=== PATIENT | female | born 1955 | race Caucasian/White ===

== ENCOUNTER 2018-03-08 13:37 | Emergency (ER) | payer OTHER ==
[~2018-03-08] VITALS: Ht 162.6 cm; Wt 73.0 kg
[2018-03-08] MEDS ORDERED: CYCLOBENZAPRINE 10MG TABLET PO ONE (15:00)
[2018-03-08] MEDS ORDERED: KETOROLAC 30MG/ML VIAL IV ONE (15:00)
[2018-03-08] MEDS ORDERED: KETOROLAC 60MG/2ML VIAL IM ONE (15:30)
[2018-03-08] MEDS ORDERED: IBUPROFEN 800MG TABLET PO ONE (16:00)
[2018-03-08 17:43] VITALS: BP 140/71
== END 2018-03-08 17:43 | disposition home or self-care (01) ==
LOC: ER 13:37
DX: M54.9 Dorsalgia, unspecified (principal); M25.512 Pain in left shoulder; I10 Essential (primary) hypertension; E78.5 Hyperlipidemia, unspecified; V49.9XXA Car occupant (driver) (passenger) injured in unspecified traffic accident, initial encounter; Y93.89 Activity, other specified; Y92.410 Unspecified street and highway as the place of occurrence of the external cause; Z88.0 Allergy status to penicillin; Z88.2 Allergy status to sulfonamides; Z88.5 Allergy status to narcotic agent
CPT/HCPCS: 72220; 73030; 99283; J1885